=== PATIENT | male | born 1930 | race Caucasian/White ===

== ENCOUNTER 2020-01-12 13:49 | Emergency (ER) | payer MEDICARE, OTHER ==
[~2020-01-12] VITALS: Ht 182.9 cm; Wt 77.1 kg
[2020-01-12] MEDS ORDERED: SYNTHROID150 MCG PO (14:04)
[2020-01-12] MEDS ORDERED: ASA81BEC PO (14:04)
[2020-01-12 14:45] LABS: ABSOLUTE EOSINOPHILS 0.2 thou/uL (0.0-0.7); ABSOLUTE LYMPHOCYTES 0.7 thou/uL (0.8-5.3); ABSOLUTE MONOCYTES 0.7 thou/uL (0.0-1.2); ABSOLUTE NEUTROPHILS 8.6 thou/uL (1.6-8.1); BASOPHILS 0.4 %; EOSINOPHILS 1.7 %; HEMATOCRIT 39.1 % (42.0-52.0); HEMOGLOBIN 14.1 gm/dL (14.0-18.0); LYMPHOCYTES 6.7 %; MCH 33.4 pg (26.0-34.0); MCHC 36.1 g/dL (28.0-37.0); MCV 92.5 fL (80.0-100.0); MONOCYTES 7.3 %; MPV 8.5 fl. (7.2-11.1); NUCLEATED RBCS 0 /100WBC; PLATELET COUNT* 103 thou/uL (150-400); POLYS 83.9 %; RBC 4.23 mil/uL (4.50-6.00); RDW-CV 13.7 % (10.5-14.5); WBC 10.2 thou/uL (4.0-11.0)
[2020-01-12 14:56] LABS: CALCIUM 8.8 mg/dL (8.5-10.1); CREATININE 1.1 mg/dL (0.6-1.3); POTASSIUM 4.2 mmol/L (3.5-5.1)
[2020-01-12 14:59] LABS: ALBUMIN 3.9 g/dL (3.4-5.0); TOTAL BILIRUBIN 1.2 mg/dL (<0.1-1.0)
[2020-01-12 17:13] VITALS: BP 155/81
--- NOTE | 2020-01-14 16:52 | EKG ---
[place] [address] ELECTROCARDIOGRAM REPORT Name: ONESIMO CHAHAL Room: 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[facility] : 1930 Requested By: Curt Hill Order Number: [id number] MD: Geovany Petty Measurements Intervals [place] Rate: 67 P: 36 IN: 182 QRS: -78 QRSD: 146 T: -5 QT: 441 QTc: 466 Interpretive Statements Sinus rhythm Left atrial enlargement RBBB and LAFB Baseline wander in lead(s) II,III,aVR,aVF,V1,V2,V3,V4,V5,V6 No previous ECG available for comparison Electronically Signed On 01-14-2020 16:52:11 CDT by Geovany Petty [email or web address] <ELECTRONICALLY SIGNED> By: Geovany Petty MD, [facility] 01/14/20 1652 1356 1356 eGovany Petty MD, [facility] /EPI
== END 2020-01-12 17:13 | disposition home or self-care (01) ==
LOC: M.ERS 13:49
PROVIDERS: Emergency Medicine Emergency Medical Services
DX: R55 Syncope and collapse (principal); E03.9 Hypothyroidism, unspecified